=== PATIENT | male | born 1960 | race Caucasian/White ===

== ENCOUNTER → 2019-09-20 | Outpatient (CLI) | payer OTHER ==
[~2019-09-20] MED LIST: ATOR10TA9 PO
[2019-09-20 16:19] LABS: BASOPHILS # (AUTO) 0.04 x10^3/uL (0-0.1); BASOPHILS % (AUTO) 1 % (0-1); EOSINOPHILS # (AUTO) 0.19 x10^3/uL (0-0.4); EOSINOPHILS % (AUTO) 3 % (1-7); LYMPHOCYTES # (AUTO) 2.37 x10^3/uL (1-3.4); LYMPHOCYTES % (AUTO) 39 % (22-44); MD NO; MEAN CORPUSCULAR HEMOGLOBIN 31.1 pg (27.5-34.5); MEAN CORPUSCULAR VOLUME 91.4 fL (81-97); MONOCYTES # (AUTO) 0.53 x10^3/uL (0.2-0.8); MONOCYTES % (AUTO) 9 % (2-9); NEUTROPHILS % (AUTO) 48 % (42-75); PLATELET COUNT 228 x10^3/uL (130-400); RED BLOOD COUNT 4.79 x10^6/uL (4.38-5.82); RED CELL DISTRIBUTION WIDTH 13.8 % (9.4-14.8)
[2019-09-20 16:29] LABS: ALANINE AMINOTRANSFERASE 56 U/L (12-78); ALBUMIN 4.1 g/dL (3.4-5.0); ANION GAP 6 mmol/L (5-15); CALCIUM 8.6 mg/dL (8.5-10.1); CHLORIDE 114 mmol/L (98-107); CREATININE 1.01 mg/dL (0.7-1.3)
[2019-09-20 16:31] LABS: ALKALINE PHOSPHATASE 46 U/L (45-117); BILIRUBIN,TOTAL 0.6 mg/dL (0.2-1.0); TOTAL PROTEIN 7.5 g/dL (6.4-8.2)
[2019-09-20 16:34] LABS: PROTHROMBIN TIME 10.6 Seconds (9.6-11.5)
== END | disposition home or self-care (01) ==
LOC: STAR 15:09
PROVIDERS: ATTEND Neurological Surgery
DX: Z01.818 Encounter for other preprocedural examination (principal)
CPT/HCPCS: 36415; 71046; 80053; 85025; 85610; 85730; 93005

== ENCOUNTER 2019-09-26 05:40 | Inpatient (IN) | payer OTHER ==
[~2019-09-26] VITALS: Ht 182.9 cm; Wt 103.0 kg
[2019-09-26] MEDS ORDERED: LACTATED RINGERS 1,000 ML IV SCH (06:23)
[2019-09-26 06:25] VITALS: BP 146/81
[2019-09-26] MEDS ORDERED: MIDAZOLAM 1 MG/ML, 2ML ONE (07:18)
[2019-09-26] MEDS ORDERED: REMIFENTANIL 2 MG ONE (07:18)
[2019-09-26] MEDS ORDERED: NEOSTIGMINE 1 MG/ML, 10ML ONE (07:22)
[2019-09-26] MEDS ORDERED: ROCURONIUM 10MG/ML,5ML ONE (07:22)
[2019-09-26] MEDS ORDERED: PROPOFOL 10 MG/ML, 20ML ONE (07:22)
[2019-09-26] MEDS ORDERED: CEFAZOLIN 1,000 MG ONE (07:22)
[2019-09-26] MEDS ORDERED: DEXAMETHASONE 4 MG/ML, 1ML ONE (07:22)
[2019-09-26] MEDS ORDERED: GLYCOPYRROLATE 0.2MG/1ML, 5ML ONE (07:22)
[2019-09-26] MEDS ORDERED: ONDANSETRON 2MG/ML, 2ML ONE (07:22)
[2019-09-26] MEDS ORDERED: SUCCINYLCHOLINE 20 MG/ML, 10ML ONE (07:22)
[2019-09-26] MEDS ORDERED: BUPIVACAINE/PF-EPI 0.5% 1:200K ONE (07:30)
[2019-09-26] MEDS ORDERED: BACITRACIN 50,000 UNIT ONE (07:30)
[2019-09-26] MEDS ORDERED: THROMBIN 20,000 UNIT VIAL TP ONE (07:30)
[2019-09-26] MEDS ORDERED: EPHEDRINE 50 MG/ML, 1ML ONE (08:08)
[2019-09-26] MEDS ORDERED: HYDROcodone/APAP 7.5-325MG/15ML UDC PO PRN (08:30)
[2019-09-26] MEDS ORDERED: PROMETHAZINE 25 MG SUPP PR PRN (08:30)
[2019-09-26] MEDS ORDERED: ONDANSETRON ODT 8 MG PO PRN (08:30)
[2019-09-26] MEDS ORDERED: ACETAMINOPHEN 325 MG TABLET PO PRN (08:30)
[2019-09-26] MEDS ORDERED: PROMETHAZINE 25 MG/ML, 1ML IV PRN (08:30)
[2019-09-26] MEDS ORDERED: ONDANSETRON 2MG/ML, 2ML IV PRN ×2 (08:30→12:30)
[2019-09-26] MEDS: HYDROmorphone 2 MG/ML, 1ML IVPush PRN ×2 (09:45→10:30)
[2019-09-26] MEDS: FENTANYL PF 100 MCG/2ML IV PRN ×2 (10:05→10:15)
[2019-09-26] MEDS ORDERED: FENTANYL PF 100 MCG/2ML ONE (10:14)
[2019-09-26] MEDS ORDERED: HYDROmorphone 1 MG/ML, 1ML INJ ONE (10:14)
[2019-09-26] MEDS ORDERED: FENTANYL PF 250 MCG/5ML ONE ×2 (11:10→11:32)
[2019-09-26] MEDS ORDERED: HYDROcodone/APAP 7.5-325MG/15ML UDC ONE (11:12)
[2019-09-26] MEDS ORDERED: CYCLOBENZAPRINE 10 MG TABLET PO PRN (12:30)
[2019-09-26] MEDS ORDERED: PROMETHAZINE 25 MG/ML, 1ML IM PRN (12:30)
[2019-09-26] MEDS ORDERED: HYDROcodone/APAP 10/325 MG TABLET PO PRN (12:30)
[2019-09-26] MEDS ORDERED: MAGNESIUM HYDROXIDE 8%, 30ML UDC PO PRN (12:30)
[2019-09-26] MEDS ORDERED: DIPHENHYDRAMINE 25 MG CAPSULE PO PRN (12:30)
[2019-09-26] MEDS ORDERED: DIPHENHYDRAMINE 50 MG/ML, 1ML IM PRN (12:30)
[2019-09-26] MEDS: HYDROcodone/APAP 5/325 TABLET PO PRN (14:35)
[2019-09-26] MEDS: CEFAZOLIN PMX 1GM/50ML 50 ML IVPB SCH (16:18)
[2019-09-26] MEDS: NS + 20MEQ KCL 1,000 ML IV SCH (16:19)
[2019-09-26] MEDS ORDERED: MORPHINE SULFATE 4 MG/ML, 1ML IV PRN (17:30)
[2019-09-26 20:30] VITALS: BP 134/75
[2019-09-26 23:41] VITALS: BP 134/69
[2019-09-27] MEDS: HYDROcodone/APAP 5/325 TABLET PO PRN ×2 (00:29→05:59)
[2019-09-27] MEDS: NS + 20MEQ KCL 1,000 ML IV SCH (01:50)
[2019-09-27] MEDS: CEFAZOLIN PMX 1GM/50ML 50 ML IVPB SCH (03:24)
[2019-09-27 03:28] VITALS: BP 142/83
[2019-09-27 08:00] VITALS: BP 129/72
[2019-09-27] MEDS ORDERED: SENNA/DOCUSATE TABLET PO SCH (09:00)
[2019-09-27] MEDS ORDERED: ATORVASTATIN 40 MG TABLET PO SCH (09:00)
[2019-09-27] MEDS ORDERED: MAGNESIUM HYDROXIDE 8%, 30ML UDC PO ONE (11:00)
[2019-09-27] MEDS ORDERED: HYDR-3240 PO (11:19)
[2019-09-27] MEDS ORDERED: CYCL5TAB PO (11:20)
== END 2019-09-27 11:30 | disposition home or self-care (01) | DRG 473 ==
LOC: ORIP 05:40 → 4NE 11:36 → DCLOUNGE 09-27 11:24
PROVIDERS: ADMIT Neurological Surgery; ATTEND Neurological Surgery
PROC: 0RB30ZZ Excision of Cervical Vertebral Disc, Open Approach (ICD-10-PCS; 2019-09-26)
PROC: 01N10ZZ Release Cervical Nerve, Open Approach (ICD-10-PCS; 2019-09-26)
PROC: 0PP304Z Removal of Internal Fixation Device from Cervical Vertebra, Open Approach (ICD-10-PCS; 2019-09-26)
PROC: 4A11X4G Monitoring of Peripheral Nervous Electrical Activity, Intraoperative, External Approach (ICD-10-PCS; 2019-09-26)
PROC: 0RG20A0 Fusion of 2 or more Cervical Vertebral Joints with Interbody Fusion Device, Anterior Approach, Anterior Column, Open Approach (ICD-10-PCS; principal; 2019-09-26 07:30)
DX: M48.02 Spinal stenosis, cervical region (principal); M54.12 Radiculopathy, cervical region; M54.16 Radiculopathy, lumbar region; M48.061 Spinal stenosis, lumbar region without neurogenic claudication; R51 Headache; Z98.1 Arthrodesis status; Z88.8 Allergy status to other drugs, medicaments and biological substances
CPT/HCPCS: 36415; 72040; 86850; 86900; 95938; 95941; C1713; C1776; G0378; J0690; J1100; J1170; J2250; J2405; J2704; J2710; J3010; J3480; C1762; J0330; J7120

== ENCOUNTER → 2020-09-10 | Outpatient (CLI) | payer BC ==
[~2020-09-10] MED LIST changes: +CYCL5TAB PO; +HYDR-1067 PO
== END | disposition home or self-care (01) ==
LOC: RAD 08:38
PROVIDERS: ATTEND Student in an Organized Health Care Education/Training Program
DX: R13.10 Dysphagia, unspecified (principal)
CPT/HCPCS: 74220

== ENCOUNTER 2021-03-25 10:34 | Emergency (ER) | payer BC ==
[~2021-03-25] VITALS: Ht 182.9 cm; Wt 80.0 kg
[~2021-03-25 10:34] MED LIST changes: -HYDR-1067 PO; +HYDR-2214 PO
[2021-03-25] MEDS ORDERED: DIPH,PERTUSS(ACELL),TET VAC/PF 0.5 ML IM-VACC ONE ×2 (11:30→12:18)
[2021-03-25] MEDS ORDERED: LIDOCAINE-MPF 1%, 5ML INFIL ONE (11:30)
[2021-03-25] MEDS ORDERED: NEOSPORIN OINT. PKT 1 PACKET ONE (12:18)
[2021-03-25] MEDS ORDERED: LIDOCAINE-MPF 1%, 5ML ONE (12:18)
--- NOTE | 2021-03-25 12:28 | NUR ---
HATTIEAP ADMIN. LIDO PULLED FOR PROVIDER ADMIN.
[2021-03-25 14:20] VITALS: BP 124/71
== END 2021-03-25 15:54 | disposition home or self-care (01) ==
LOC: ED 14:55
DX: S61.412A Laceration without foreign body of left hand, initial encounter (principal); E78.00 Pure hypercholesterolemia, unspecified; W26.0XXA Contact with knife, initial encounter; Y93.89 Activity, other specified; Y92.009 Unspecified place in unspecified non-institutional (private) residence as the place of occurrence of the external cause; Y99.8 Other external cause status
CPT/HCPCS: 12001; 90471; 90715; 99283